=== PATIENT | male | born 1970 | race Caucasian/White ===

== ENCOUNTER → 2018-10-11 | Outpatient (CLI) | payer BC ==
--- NOTE | 2018-10-11 13:01 | XR ---
EXAMINATION TYPE: XR chest 2V DATE OF EXAM: 10/11/2018 COMPARISON: 10/30/2015 HISTORY: Chest pain TECHNIQUE: Frontal and lateral views of the chest are obtained. FINDINGS: There is no focal air space opacity. No evidence for pneumothorax. No pleural effusion. The cardiac silhouette size is within normal limits. The osseous structures are grossly intact. IMPRESSION: 1. No acute cardiopulmonary process.
== END | disposition home or self-care (01) ==
LOC: RADXRMAIN 12:34
PROVIDERS: ATTEND Family Medicine
DX: Z09 Encounter for follow-up examination after completed treatment for conditions other than malignant neoplasm (principal); Z87.891 Personal history of nicotine dependence
CPT/HCPCS: 71046

== ENCOUNTER → 2022-05-05 | Outpatient (CLI) | payer BC ==
--- NOTE | 2022-05-05 09:48 | CA ---
Transthoracic Echo Report Name: Raffy Perez Age: 51 Gender: M : 1970 Exam Date: 05/05/2022 08:34 Exam Location: [place] [facility] Ht (in): 72 Wt (lb): 185 Ordering Physician: Jose Elias Figueredo DO Attending/Referring Phys: Physical Fitness Teacher Lu Birmingham RDCS Procedure CPT: Indications: R07.9 CHEST PAIN R06.02 SOB Cardiac Hx: Technical Quality: Good Contrast 1: Total Dose (mL): Contrast 2: Total Dose (mL): MEASUREMENTS (Male / Female) Normal Values 2D ECHO LV Diastolic Diameter PLAX 4.7 cm 4.2 - 5.9 / 3.9 - 5.3 cm LV Systolic Diameter PLAX 3.2 cm IVS Diastolic Thickness 1.2 cm 0.6 - 1.0 / 0.6 - 0.9 cm LVPW Diastolic Thickness 1.4 cm 0.6 - 1.0 / 0.6 - 0.9 cm LV Relative Wall Thickness 0.6 RV Internal Dim ED PLAX 3.3 cm LA Systolic Diameter LX 3.5 cm 3.0 - 4.0 / 2.7 - 3.8 cm LA Volume 39.0 cm??? 18 - 58 / 22 - 52 cm??? M-MODE Aortic Root Diameter MM 3.7 cm LA Systolic Diameter MM 3.6 cm LA Ao Ratio MM 1.0 MV E Point Septal Separation 0.1 cm AV Cusp Separation MM 2.0 cm DOPPLER MV Area PHT 2.9 cm??? Mitral E Point Velocity 42.5 cm/s Mitral A Point Velocity 69.2 cm/s Mitral E to A Ratio 0.6 MV Deceleration Time 261.9 ms MV E' Velocity 4.9 cm/s Mitral E to MV E' Ratio 8.6 FINDINGS Left Ventricle Normal left ventricular size, wall thickness, left ventricular ejection fraction is estimated at 50-55%. Right Ventricle The right ventricle is normal in size and function. Right Atrium The right atrium is normal in size. Left Atrium The left atrium is normal in size. Mitral Valve Structurally normal mitral valve without significant stenosis or prolapse. There is mild mitral regurgitation. Aortic Valve Structurally normal aortic valve without significant sclerosis or stenosis. There is no aortic regurgitation. Tricuspid Valve Structurally normal tricuspid valve without significant stenosis. Pulmonary artery systolic pressure is normal. Pulmonic Valve Structurally normal pulmonic valve without significant stenosis. There is no pulmonic regurgitation. Pericardium Normal pericardium without effusion. Aorta Normal aortic root dimension. CONCLUSIONS Left ventricular ejection fraction 50-55% Mild mitral regurgitation No pericardial effusion Previewed by: Dr. Calvin Vargas DO (Electronically Signed) Final Date: 05 May 2022 09:47
== END | disposition home or self-care (01) ==
LOC: RADECHMAIN 08:13
PROVIDERS: ATTEND Family Medicine
DX: I34.0 Nonrheumatic mitral (valve) insufficiency (principal)
CPT/HCPCS: 93306

== ENCOUNTER → 2022-08-13 | Outpatient (CLI) | payer BC ==
--- NOTE | 2022-08-13 20:26 | MR ---
EXAMINATION TYPE: MR lumbar spine wo con DATE OF EXAM: 08/13/2022 11:52 AM COMPARISON: CT 11/26/2015. CLINICAL INDICATION:Male, 51 years old with history of M48.061 SPINAL STENOSIS. TECHNIQUE: Multi planar, multi sequence imaging was performed utilizing: T1-weighted, T2-weighted, a nd turbo inversion recovery imaging of the lumbar spine. IV Contrast: None. FINDINGS: Alignment: The lumbar vertebral bodies have preserved alignment. Mild wedging of the L1 vertebral eufemia dy without acute bony edema on inversion recovery sequences. Cord: The conus medullaris and the distal spinal cord appear unremarkable with regards to their signa l intensity and morphology. Bones/Discs: Heterogenous diffuse low T1/T2 signal throughout the visualized osseous structures. Mult ilevel degenerative disc disease is noted and most pronounced at the L3-L4. Intervertebral disc signa l is maintained. L1-L2: No evidence of significant spinal canal stenosis or neural foraminal stenosis. L2-L3: No evidence of significant spinal canal stenosis or neural foraminal stenosis. L3-L4: No evidence of significant spinal canal stenosis. Facet joint arthropathy without significant neural foraminal stenosis. L4-L5: No evidence of significant spinal canal stenosis. Facet joint arthropathy without significant neural foraminal stenosis. L5-S1: No evidence of significant spinal canal stenosis. Facet joint arthropathy mild bilateral neura l foraminal stenosis. IMPRESSION: 1. No definitive evidence of disc herniation or significant spinal canal stenosis. 2. Mild disc degeneration with associated osteoarthritic changes. 3. Diffuse red marrow conversion can be seen in the setting of tobacco abuse, anemia, or myeloprolif erative disorders.
== END | disposition home or self-care (01) ==
LOC: RADMRIMAIN 10:48
PROVIDERS: ATTEND Nurse Practitioner Family
DX: M48.061 Spinal stenosis, lumbar region without neurogenic claudication (principal); M51.36 Other intervertebral disc degeneration, lumbar region; M47.816 Spondylosis without myelopathy or radiculopathy, lumbar region; F17.200 Nicotine dependence, unspecified, uncomplicated
CPT/HCPCS: 72148

== ENCOUNTER → 2022-09-28 | Outpatient (CLI) | payer BC ==
[2022-09-28 08:55] VITALS: BP 133/95; PULSE 87; RESP 18; TEMP 98.4
--- NOTE | 2022-09-28 15:45 | P.PAINPG ---
PQRS Measure Charge Sheet Comment: HISTORY OF PRESENT ILLNESS: 51 yr old male as a referral from [facility] presents today w severe and chronic L>R LBP secondary to DDD, spondylosis and facet arthropathy without myelopathy for evaluation. Pt states pain level is at 9 /10 in intensity, constant, localized in the L lumbar spine, dull, achy in character w shooting pain towards the R ship and RLE. Pain is provoked by over stretching. Pain is alleviated by PT ended in Aug x 8 wks, massage therapy integrated w PT, chiropractic treatments weekly for 2+ yrs, heat, ice, meds (Tramadol, Flexeril), topicals, repositioning and rest. PMH: Hypothyroidism PSH: Hip Surgery SH: Daily tobacco use, No ETOH abuse, No illicit drug use. and lives w spouse. FH: Non contributory All: NKDA Meds: See list REVIEW OF ORGAN SYSTEMS: CONSTITUTIONAL: No fevers or chills. No recent weight loss. NEUROLOGICAL: + numbness and tingling along the distal extremities. No seizure disorders or headaches. MUSCULOSKELETAL: + pain PSYCHIATRIC: Denies current depression or suicidal thoughts. Physical Examinations : Constitutional : Cooperative , not in acute distress . Neurologic : Cranial nerve II to XII intact. No focal neurological deficits. Psychiatric : alert & oriented x 3. Matching mood & appropriate affect. Judgment & insight intact. Musculoskeletal : Cervical Spine Motor strength in the deltoid and biceps: Normal right side. Normal Left side Motor strength biceps and the wrist extensors: Normal right side . Normal left side Motor strength in the triceps muscle: Normal right side. Normal left side Deep tendon reflexes: Normal at the biceps. Normal at Brachioradialis. Normal at triceps Vertebral body tenderness to deep palpation over Cervical facet loading test: positive bilaterally Spurling test: positive bilaterally Neck distraction test: positive b ilaterally Kendall sign: positive bilaterally Lumbar spine Motor strength lower extremities ,thigh and legs 5/5 Right side , 5/5 Left side Deep tendon reflexes : Normal Knee Jerk. Normal Ankle Jerk Vertebral body tenderness over L5 Lumbar facet Loading Test: positive Right / positive Left Range of motion of the lumbar spine Flexion 30 degrees, extension 10 degrees Straight Leg Raise test: Left/ Right positive at degree Shey test: positive right / positive left. Severe tenderness over the Sacroiliac joint on the Right / Left sides Gaenslen test: positive bilaterally Seated flexion test: positive bilaterally. Sacral spine : Severe tenderness over the Sacroiliac joint: right side / left side Range of motion: Flexion of the lumbar spine <60 degrees Range of motion: Extension of the lumbar spine <20 degrees Gaenslen's Test positive Young's Test positive Shey test: positive right side / left side Thigh Thrust Test Sacral Thrust Test Imaging: MRI without contrast of the lumbar spine from 08/13/22 reviewed Assessment/ Plan : Lumbar DDD Recommendation of R TFESI L5-S1. May need a series of injections, up to 3 within a six-month timeframe, for optimal pain relief. Risks/benefits of procedure discussed and patient verbalized understanding. Admits to aspirin or anti- coagulant use or medical history of diabetes. Protocol for discontinuation/ continuation of medications sara procedure discussed. All questions answered. I have spent greater than 30 minutes on patient care today. Dr Cardenas was available by phone for the evaluation of this patient. The time was used to review the medical records including relevant urine studies and Prescription history (MAPs), review of the available imaging, evaluation and examination of the patient, coordination of care with the medical staff and if applicable referring physicians, as well as creation of the medical record PQRS Narrative: Smoking Status Current every day smoker Home Medications: Ambulatory Orders Levothyroxine Sodium [Synthroid] 1 tab PO DAILY 12/01/15 Controlled Substance Measures - Controlled Substance Measures Is patient prescribed a controlled substance at discharge?: No
== END ==
LOC: PNWHC3 08:06
PROVIDERS: ATTEND Specialist
DX: M51.36 Other intervertebral disc degeneration, lumbar region (principal); E03.9 Hypothyroidism, unspecified; Z79.890 Hormone replacement therapy; F17.200 Nicotine dependence, unspecified, uncomplicated
CPT/HCPCS: 99211

== ENCOUNTER → 2022-11-18 | Outpatient (CLI) | payer BC ==
[2022-11-18 08:20] VITALS: BP 150/101; PULSE 81; RESP 18
--- NOTE | 2022-11-18 15:09 | P.PAINPG ---
Objective - Vital Signs Vital signs: Intake & Output 11/17/22 11/18/22 11/18/22 18:59 06:59 18:59 Weight 83.461 kg PQRS Measure Charge Sheet Comment: A 52 yr old male with a history of severe and chronic LBP secondary to lumbar DDD and spondylosis with facet arthropathy without myelopathy presents today for evaluation s/p R TFESI L5-S1. Pt states he experienced 85% pain relief for > 2 wks until present. Pain level is provoked at 5/10 in intensity occasionally, constant, localized in the lumbar spine, stabbing in character w shooting towards the BLEs. Pain is provoked by standing, running and weight bearing activity. Pain is alleviated with PT integrated w massage x 6 wks in Aug 2022, chiropractic treatments 2-4 times montly for years currently, heat, medications, topicals, repositioning and rest. Interventional pain procedures completed include R TFESI L5-S1 Patient is currently on Tramadol, Flexeril, Advil Patient denies any side effects of the medication(s), denies excessive drowsiness or sleepiness, denies suicidal ideation and reports that the current pain medication is helping to control the pain and improve activities of daily living. Patient denies any motor or sensory deficits. Patient denies any fever or night sweats, denies any change in the bowel movements or urination. Physical Examination: -Constitutional: Cooperative. Not in acute distress . - Neurologic: Cranial nerve II to XII intact. No focal neurological deficits. - Psychatric: Alert & oriented x 3. Matching mood & appropriate affect. Judgment and insight intact. - Musculoskeletal: Cervical spine: Muscle bulk/ tone/ strength in the bilateral upper extremities normal Vertebral body tenderness to palpation over Spurling test positive Distraction test positive Facet loading test positive TTP Thoracic spine Muscle bulk / tone/ strength in the bilateral paraspinal muscles normal Vertebral body tender to palpation over Facet loading test positive TTP Lumbar spine: Motor bulk/ tone/ strength lower extremities , thigh and legs : 5/5 Deep tendon reflexes : Normal Knee Jerk. Normal Ankle Jerk . Vertebral body tenderness to palpation over Lumbar Facet Loading Test positive Straight Leg Raise: positive at 30 degrees right side/ left side Gaenslen's Test positive Sacral spine : Severe tenderness over the Sacroiliac joint: right side / left side Range of motion: Flexion of the lumbar spine <60 degrees Range of motion: Extension of the lumbar spine <20 degrees Gaenslen's Test positive right side / left side Shey test: positive right side / left side Thigh Thrust Test positive right side / left side Sacral Thrust Test positive right side / left side Assessment and plan: Chronic LBP secondary to lumbar DDD, spondylosis with facet arthropathy without myelopathy Exhibited sufficient and substantial pain relief s/p procedure. Will manage residual pain at home and may return to this clinic on an as needed basis. All questions answered. I have spent less than 30 minutes on patient care today. Dr Cardenas was available by phone for the evaluation of this patient. The time was used to review the medical records including relevant urine studies and Prescription history (MAPs), review of the available imaging, evaluation and examination of the patient, coordination of care with the medical staff and if applicable referring physicians, as well as creation of the medical record PQRS Narrative: Smoking Status Current every day smoker Hx Alcohol Use (MH) Yes: CASUAL Home Medications: Ambulatory Orders Levothyroxine Sodium [Synthroid] 88 mcg PO DAILY 12/01/15 Cyclobenzaprine [Flexeril] 10 mg PO TID 10/21/22 carvediloL [Coreg] 6.25 mg PO DAILY 10/21/22 traMADol HCL 50 mg PO Q6H 10/21/22 Controlled Substance Measures - Controlled Substance Measures Is patient prescribed a controlled substance at discharge?: No
== END ==
LOC: PNWHC3 07:48
PROVIDERS: ATTEND Specialist
DX: M51.36 Other intervertebral disc degeneration, lumbar region (principal); M47.816 Spondylosis without myelopathy or radiculopathy, lumbar region; G89.29 Other chronic pain; F17.200 Nicotine dependence, unspecified, uncomplicated; Z79.890 Hormone replacement therapy
CPT/HCPCS: 99211

== ENCOUNTER → 2024-04-07 | Outpatient (CLI) | payer BC ==
--- NOTE | 2024-04-07 13:02 | XR ---
EXAMINATION TYPE: XR chest 2V DATE OF EXAM: 04/07/2024 COMPARISON: 10/11/2018 HISTORY: Shortness of breath TECHNIQUE: Frontal and lateral views of the chest are obtained. FINDINGS: Scattered senescent parenchymal changes noted. Hyperinflation compatible with COPD. No evidence for infiltrate. No evidence for atelectasis. Heart size is stable. Mediastinal structures are stable and grossly unremarkable. No evidence for hilar prominence. Degenerative changes dorsal spine. IMPRESSION: 1. No evidence for acute pulmonary disease.
== END | disposition home or self-care (01) ==
LOC: RADXRMAIN 12:43
PROVIDERS: ATTEND Family Medicine
DX: R07.9 Chest pain, unspecified (principal); R06.02 Shortness of breath; Z72.0 Tobacco use
CPT/HCPCS: 71046

== ENCOUNTER 2024-04-30 22:39 | Observation (INO) | payer BC ==
--- NOTE | 2024-04-30 22:47 | ED ---
Chest Pain HPI - General Chief Complaint: Chest Pain Stated Complaint: Chest pain Time Seen by Provider: 04/30/24 22:45 Source: patient, RN notes reviewed, old records reviewed Mode of arrival: ambulatory Limitations: no limitations - History of Present Illness Initial Comments: This is a 53-year-old male to the ER for evaluation patient presents today for chest pain and a syncopal event. No recurrent syncope here in the ER but patient is complaining of severe chest pain although improved here in the emergency department. No significant medical history takes no medications her blood pressure has been elevated states patient had slurred speech MD Complaint: chest pain, other (Event prior to arrival) -: hour(s) Onset: during rest, during exertion Pain Location: left chest Pain Radiation: LUE Severity: severe Quality: aching, sharp Consistency: constant, now resolved Improves With: nothing Worsens With: nothing Anginal Symptoms: sense of impending doom Other Symptoms: syncope, palpitations Treatments Prior to Arrival: none - Related Data Home Medications Medication Instructions Recorded Confirmed Levothyroxine Sodium [Synthroid] 88 mcg PO DAILY 12/01/15 05/01/24 Multivitamins, Thera [Multivitamin 1 tab PO DAILY 05/01/24 05/01/24 (formulary)] amLODIPine [Norvasc] 5 mg PO DAILY 05/01/24 05/01/24 Allergies Allergy/AdvReac Type Severity Reaction Status Date / Time No Known Allergies Allergy Verified 05/01/24 09:01 Review of Systems ROS Statement: Those systems with pertinent positive or pertinent negative responses have been documented in the HPI. ROS Other: All systems not noted in ROS Statement are negative. EKG Findings - EKG Comments: EKG Findings:: EKG sinus 60 MA 194 QRS 116 QTc 455 - EKG Results: EKG: interpreted by WESLEY Past Medical History Past Medical History: Hypertension, Thyroid Disorder History of Any Multi-Drug Resistant Organisms: None Reported Past Surgical History: Cholecystectomy Additional Past Surgical History / Comment(s): hip surgery reconstruction rt Past Anesthesia/Blood Transfusion Reactions: No Reported Reaction, Family History of Problems w/ Anesthesia Additional Past Anesthesia/Blood Transfusion Reaction / Comment(s): mother has reactions to anesthesia but doesn't think she runs a high fever Past Psychological History: No Psychological Hx Reported Smoking Status: Current every day smoker Past Alcohol Use History: None Reported Past Drug Use History: None Reported General Exam Limitations: no limitations General appearance: alert, in no apparent distress, anxious Head exam: Present: atraumatic, normocephalic, normal inspection Eye exam: Present: normal appearance, PERRL, EOMI. Absent: scleral icterus, conjunctival injection, periorbital swelling ENT exam: Present: normal exam, mucous membranes moist Neck exam: Present: normal inspection. Absent: tenderness, meningismus, lymphadenopathy Respiratory exam: Present: normal lung sounds bilaterally. Absent: respiratory distress, wheezes, rales, rhonchi, stridor Cardiovascular Exam: Present: regular rate, normal rhythm, normal heart sounds. Absent: systolic murmur, diastolic murmur, rubs, gallop, clicks GI/Abdominal exam: Present: soft, normal bowel sounds. Absent: distended, tenderness, guarding, rebound, rigid Extremities exam: Present: normal inspection, full ROM, normal capillary refill. Absent: tenderness, pedal edema, joint swelling, calf tenderness Back exam: Present: normal inspection Neurological exam: Present: alert, oriented X3, CN II-XII intact Psychiatric exam: Present: normal affect, normal mood Skin exam: Present: warm, dry, intact, normal color. Absent: rash Course Vital Signs 04/30/24 05/01/24 05/01/24 22:40 00:00 01:05 Temperature 98.2 F Pulse Rate 75 70 62 Respiratory 18 16 16 Rate Blood Pressure 149/74 100/71 108/74 O2 Sat by Pulse 96 97 97 Oximetry 05/01/24 03:00 Temperature Pulse Rate 88 Respiratory 16 Rate Blood Pressure 101/78 O2 Sat by Pulse 95 Oximetry - Reevaluation(s) Reevaluation #1: 05/01/24 02:46 Medical records reviewed Reevaluation #2: 05/01/24 02:46 Patient symptoms improved no recurrent syncope chest pain improved Reevaluation #3: 05/01/24 02:46 Patient informed of results and questions answered Reevaluation #4: Was pt. sent in by a medical professional or institution (, PA, MANAGER PAID, urgent care, hospital, or correction...) When possible be specific @ -no Did you speak to anyone other than the patient for history (EMS, parent, family, police, friend...)? What history was obtained from this source @ -no Did you review nursing and triage notes (agree or disagree)? Why? @ -agree Are old charts reviewed (outside hosp., previous admission, EMS record, old EKG, old radiological studies, urgent care reports/EKG's, correction records)? Report findings @ -yes Differential Diagnosis (chest pain, altered mental status, abdominal pain women, abdominal pain men, vaginal bleeding, weakness, fever, dyspnea, syncope, headache, dizziness, GI bleed, back pain, seizure, CVA, palpatations, mental health, musculoskeletal)? @ -prior EKG interpreted by me (3pts min.). @ -yes X-rays interpreted by me (1pt min.). @ -no CT interpreted by me (1pt min.). @ -yes negative for acute disease U/S interpreted by me (1pt. min.). @ -no What testing was considered but not performed or refused? (CT, X-rays, U/S, labs)? Why? @ -none What meds were considered but not given or refused? Why? @ -none Did you discuss the management of the patient with other professionals (professionals i.e. , PA, MANAGER PAID, lab, RT, psych nurse, social insurance administrator, entry level project coordinator, teacher, audit officer, major case detective)? Give summary @ -no Was smoking cessation discussed for >3mins.? @ -no Was critical care preformed (if so, how long)? @ -[id number] Were there social determinants of health that impacted care today? How? (Homelessness, low income, unemployed, alcoholism, drug addiction, transportation, low edu. Level, literacy, decrease access to med. care, [facility], rehab)? @ -none Was there de-escalation of care discussed even if they declined (Discuss DNR or withdrawal of care, Hospice)? DNR status @ -no What co-morbidities impacted this encounter? (DM, HTN, Smoking, COPD, CAD, Cancer, CVA, ARF, Chemo, Hep., AIDS, mental health diagnosis, sleep apnea, morbid obesity)? @ -none Was patient admitted / discharged? Hospital course, mention meds given and route, prescriptions, significant lab abnormalities, going to OR and other pertinent info. @ - 53 male with syncopal event and chest pain severe chest pain CT scan negative CT brain is negative for traumatic injury patient needs to be admitted Admitted Undiagnosed new problem with uncertain prognosis? @ -no Drug Therapy requiring intensive monitoring for toxicity (Heparin, Nitro, Insulin, Cardizem)? @ -no Were any procedures done? @ -no Diagnosis/symptom? @ -Syncope Acute, or Chronic, or Acute on Chronic? @ -Acute Uncomplicated (without systemic symptoms) or Complicated (systemic symptoms)? @ -Complicated Side effects of treatment? @ -no Exacerbation, Progression, or Severe Exacerbation? @ -exacerbation Poses a threat to life or bodily function? How? (Chest pain, [place], [place], pneumonia, PE, COPD, DKA, ARF, appy, cholecystitis, CVA, Diverticulitis, Homicidal, Suicidal, threat to staff... and all critical care pts) @ -yes with syncope syncope Reevaluation #5: Differential Chest Pain: Stable Angina, Unstable Angina, STEMI, NSTEMI Aortic Dissection, Pneumothorax, Musculoskeletal, Esophageal Spasm GERD, Cholecystitis, Pancreatitis, Zoster, this is not meant to be an all-inclusive list. - Consultations Consultation #1: Spoke with [facility] who agrees to admit this patient Chest Pain MDM - MDM 53 male with syncopal event and chest pain severe chest pain CT scan negative CT brain is negative for traumatic injury patient needs to be admitted Critical Care Time Critical Care Time: Yes Total Critical Care Time: 31 Disposition Clinical Impression: Chest pain, Syncope Disposition: ADMITTED IP TO THIS [facility] Condition: Fair Is patient prescribed a controlled substance at d/c from ED?: No Time of Disposition: 02:40
[2024-04-30] MEDS: SODIUM CHLORIDE 0.9% 1,000 ML IV STA (23:33)
[2024-04-30 23:45] LABS: Basophils # (A) 0.1 k/uL (0-0.2); Basophils % (A) 1 %; Eosinophils # (A) 0.5 k/uL (0-0.7); Eosinophils % (A) 6 %; HCT 42.6 % (39.0-53.0); HGB 14.5 gm/dL (13.0-17.5); Lymphocytes # (A) 2.8 k/uL (1.0-4.8); Lymphocytes % (A) 35 %; MCH 33.4 pg (25.0-35.0); MCV 98.4 fL (80.0-100.0); Mean Platelet Volume 7.4; Monocytes # (A) 0.5 k/uL (0-1.0); Monocytes % (A) 6 %; Neutrophils # (A) 3.9 k/uL (1.3-7.7); Neutrophils % (A) 49 %; Platelet Count 193 k/uL (150-450); RBC 4.33 m/uL (4.30-5.90); RDW 12.9 % (11.5-15.5); WBC 7.9 k/uL (3.8-10.6)
[2024-05-01 00:04] LABS: ALT 16 U/L (4-49); AST 28 U/L (17-59); African American GFR (CKD) >90 (>60 ml/min/1.73 sqM); Albumin 4.1 g/dL (3.5-5.0); Alkaline Phosphatase 60 U/L (38-126); Anion Gap 13 mmol/L; Blood Urea Nitrogen 10 mg/dL (9-20); Calcium 8.8 mg/dL (8.4-10.2); Carbon Dioxide 18 mmol/L (22-30); Chloride 105 mmol/L (98-107); Glucose 95 mg/dL (74-99); Lipase 88 U/L (23-300); Non-African American GFR(CKD) 80 (>60 ml/min/1.73 sqM); Potassium 3.9 mmol/L (3.5-5.1); Sodium 136 mmol/L (137-145); Total Bilirubin 0.5 mg/dL (0.2-1.3); Total Protein 6.3 g/dL (6.3-8.2)
[2024-05-01 00:12] LABS: Partial Thromboplastin Time 24.3 sec (22.0-30.0); Prothrombin Time 10.7 sec (10.0-12.5)
[2024-05-01 01:34] LABS: Appearance,Urine Clear (Clear); Bilirubin,Urine Negative (Negative); Blood,Urine Negative (Negative); Color,Urine Colorless; Glucose,Urine (UA) Negative (Negative); Ketones,Urine Negative (Negative); Leukocyte Esterase,Urine Trace (Negative); Nitrite,Urine Negative (Negative); PH, Urine 6.5 (5.0-8.0); Protein,Urine Negative (Negative); RBC,Urine <1 /hpf (0-5); Specific Gravity,Urine 1.004 (1.001-1.035); Squamous Epithelial Cell,Urine <1 /hpf (0-4); Urobilinogen,Urine <2.0 mg/dL (<2.0); WBC,Urine <1 /hpf (0-5)
[2024-05-01] MEDS ORDERED: ONDANSETRON 4 MG/2 ML VIAL IVP PRN (02:42)
[2024-05-01] MEDS ORDERED: MORPHINE SULFATE 4 MG/ML SYRINGE IV PRN (02:42)
[2024-05-01] MEDS ORDERED: NALOXONE 0.4 MG/ML 1 ML VIAL IV PRN (02:42)
[2024-05-01] MEDS: SODIUM CHLORIDE 0.9% 1,000 ML IV SCH (05:41)
[2024-05-01 08:24] VITALS: RESP 17
[2024-05-01] MEDS: amLODIPine 5 MG TAB PO SCH (10:15)
[2024-05-01] MEDS: PANTOPRAZOLE 40 MG/10 ML VIAL IV SCH (10:15)
[2024-05-01] MEDS: NICOTINE 21MG/24HR PATCH TRANSDERM SCH (12:34)
--- NOTE | 2024-05-01 12:38 | P.CRDCN ---
History of Present Illness History of present illness: HISTORY OF PRESENT ILLNESS: This is a 53 year old male with a past medical history significant for hypothyroidism and hypertension. Patient has an appointment to establish with Dr. Vargas next month. We have been asked to see the patient in consultation for syncope. Patient examined at the bedside. Patient reports he was walking around his house yesterday and passed out. He reports having chest pain after this syncopal episode. He reports having an episode similiar to this in March after hauling items from his basement. He reports mild chest pain after that. Reports uncontrolled BP at home with SBP into the 200s. His blood pressure here has been well controlled, even on the lower end. Reports in March his Coreg was increased and he was started on Norvasc. He is a one pack per day smoker. He reports alcohol use approximately 2 times a week. Reports family hx of CAD in his dad and grandpa. DIAGNOSTICS: - EKG reveals sinus mechanism with no signs of acute ischemia - Laboratory data: WBC 7.9. Hemoglobin 14.5. Platelet count 193. Sodium 136. Potassium 3.9. BUN 10. Creatinine 1.06. Troponin negative x 3. - Current home cardiac medications include carvedilol 25 mg at night and amlodipine 5 mg daily REVIEW OF SYSTEMS: At the time of my exam: CONSTITUTIONAL: Denies fever or chills. HEENT: Denies blurred vision, vision changes, or eye pain. Denies hemoptysis CARDIOVASCULAR: Denies chest pain. Denies orthopnea. Denies PND. Denies palpitations RESPIRATORY: Denies shortness of breath. GASTROINTESTINAL: Denies abdominal pain. Denies nausea or vomiting. HEMATOLOGIC: Denies bleeding disorders. GENITOURINARY: Denies any blood in urine. SKIN: Denies pruitis. Denies rash. PHYSICAL EXAM: VITAL SIGNS: Reviewed. GENERAL: Well-developed in no acute distress. HEENT: Head is normocephalic. Pupils are equal, round. Sclerae anicteric. Mucous membranes of the mouth are moist. Neck supple. No JVD or thyromegaly LUNGS: Respirations even and unlabored. Lungs essentially clear to auscultation bilaterally. HEART: Regular rate and rhythm. S1 and S2 heard. ABDOMEN: Soft. Nondistended. Nontender. EXTREMITIES: Normal range of motion. No clubbing or cyanosis. Peripheral pulses intact. No lower extremity edema NEUROLOGIC: Awake and alert. Oriented x 3. ASSESSMENT: Syncope Chest pain, troponin negative x 3 Acute alcohol intoxication, serum alcohol 161 on admission Hypertension Hyperlipidemia Nicotine dependence Family history of CAD Frequent alcohol use, 2-3 times per week PLAN: An acute coronary event has been ruled out Hold carvedilol Resume amlodipine Obtain 2D echo to assess cardiac structure and function Patient to undergo stress echocardiogram today to assess for ischemia Patient instructed to keep a log of his blood pressures at home and also to bring his blood pressure cuff to his follow-up appointment to verify accuracy of his cuff Recommend outpatient event monitor Further recommendations pending patient course Nurse practitioner note has been reviewed by physician. Signing provider agrees with the documented findings, assessment, and plan of care documented by ORCHARD HAND as a scribe. Past Medical History Past Medical History: Hypertension, Thyroid Disorder History of Any Multi-Drug Resistant Organisms: None Reported Past Surgical History: Cholecystectomy Additional Past Surgical History / Comment(s): hip surgery reconstruction rt Past Anesthesia/Blood Transfusion Reactions: No Reported Reaction, Family History of Problems w/ Anesthesia Additional Past Anesthesia/Blood Transfusion Reaction / Comment(s): mother has reactions to anesthesia but doesn't think she runs a high fever Past Psychological History: No Psychological Hx Reported Smoking Status: Current every day smoker Past Alcohol Use History: None Reported Additional Past Alcohol Use History / Comment(s): 1pk/day/38 yrs Past Drug Use History: None Reported Medications and Allergies Home Medications Medication Instructions Recorded Confirmed Type Levothyroxine Sodium [Synthroid] 88 mcg PO DAILY 12/01/15 05/01/24 History Multivitamins, Thera [Multivitamin 1 tab PO DAILY 05/01/24 05/01/24 History (formulary)] amLODIPine [Norvasc] 5 mg PO DAILY 05/01/24 05/01/24 History carvediloL [Coreg] 25 mg PO HS 05/01/24 05/01/24 History Allergies Allergy/AdvReac Type Severity Reaction Status Date / Time No Known Allergies Allergy Verified 05/01/24 09:01 Physical Exam Vitals: Vital Signs Temp Pulse Pulse Pulse Resp BP BP 05/01/24 08:20 05/01/24 07:08 98.1 F 86 17 123/67 05/01/24 05:18 98.3 F 81 18 125/75 05/01/24 03:00 88 16 101/78 05/01/24 01:05 62 16 108/74 05/01/24 00:00 70 16 100/71 04/30/24 22:40 98.2 F 75 18 149/74 Pulse Ox 05/01/24 08:20 97 05/01/24 07:08 97 05/01/24 05:18 95 05/01/24 03:00 95 05/01/24 01:05 97 05/01/24 00:00 97 04/30/24 22:40 96 Intake and Output 04/30/24 05/01/24 05/01/24 22:59 06:59 14:59 Intake Total 0 Balance 0 Intake: Oral 0 Other: # Voids 1 Weight 81.647 kg 81.647 kg Results 04/30/24 23:14 04/30/24 23:14 Cardiac Enzymes 04/30/24 04/30/24 05/01/24 Range/Units 23:14 23:14 04:07 AST 28 (17-59) U/L Troponin I <0.012 <0.012 (0.000-0.034) ng/mL 05/01/24 Range/Units 06:01 AST (17-59) U/L Troponin I <0.012 (0.000-0.034) ng/mL Coagulation 04/30/24 Range/Units 23:14 PT 10.7 (10.0-12.5) sec APTT 24.3 (22.0-30.0) sec CBC 04/30/24 Range/Units 23:14 WBC 7.9 (3.8-10.6) k/uL RBC 4.33 (4.30-5.90) m/uL Hgb 14.5 (13.0-17.5) gm/dL Hct 42.6 (39.0-53.0) % Plt Count 193 (150-450) k/uL Comprehensive Metabolic Panel 04/30/24 Range/Units 23:14 Sodium 136 L (137-145) mmol/L Potassium 3.9 (3.5-5.1) mmol/L Chloride 105 (98-107) mmol/L Carbon Dioxide 18 L (22-30) mmol/L BUN 10 (9-20) mg/dL Creatinine 1.06 (0.66-1.25) mg/dL Glucose 95 (74-99) mg/dL Calcium 8.8 (8.4-10.2) mg/dL AST 28 (17-59) U/L ALT 16 (4-49) U/L Alkaline Phosphatase 60 (38-126) U/L Total Protein 6.3 (6.3-8.2) g/dL Albumin 4.1 (3.5-5.0) g/dL Current Medications Generic Name Dose Route Start Last Admin Trade Name Freq PRN Reason Stop Dose Admin Sodium Chloride 1,000 mls @ 130 mls/hr 05/01/24 02:45 05/01/24 05:41 Saline 0.9% IV Not Given .[id number] TOBY Morphine Sulfate 4 mg 05/01/24 02:42 Morphine Sulfate 4 Mg/Ml Syringe IV Q4HR PRN Severe Pain (Scale 7 to 10) Naloxone HCl 0.2 mg 05/01/24 02:42 Naloxone 0.4 Mg/Ml 1 Ml Vial IV Q2M PRN Opioid Reversal Ondansetron HCl 4 mg 05/01/24 02:42 Ondansetron 4 Mg/2 Ml Vial IVP Q8HR PRN Nausea And Vomiting Pantoprazole Sodium 40 mg 05/01/24 09:00 Pantoprazole 40 Mg/10 Ml Vial IV DAILY TOBY Intake and Output 04/30/24 05/01/24 05/01/24 22:59 06:59 14:59 Intake Total 0 Balance 0 Intake: Oral 0 Other: # Voids 1 Weight 81.647 kg 81.647 kg 04/30/24 23:14 04/30/24 23:14
--- NOTE | 2024-05-01 13:48 | CA ---
Stress Echo Report Raffy Perez Age: 53 Gender: M : 1970 Exam Date: 05/01/2024 11:07 Exam Location: [facility] Ht (in): 72 Wt (lb): 180 Ordering Physician: Tg Cross Referring Physician: [id number] Instructor: [place] RDCS Technologist Procedure CPT: Indication: cp, syncope ICD-9 Codes: Rhythm: Patient History: HTN, FAMILY HX OF HEART DISEASE, CURRENT SMOKER 1 PPD X 40 YEARS, NUMBNESS IN FACE/NECK Cardiac Medications: Medications in past 24 hours: Contrast: Stress Results Protocol: Bennett Total dose(mL): Exercise Duration (min:sec): 10:[address] Depression (mm): Angina Score: Tello Score: METS: 11.5 Resting HR: 86 Resting BP: 146 / 92 Peak HR: 149 Peak BP: 178 / 88 Max Predicted HR: 167 89 % Max Predicted HR Target HR: 142 Double Product: [id number] Stress Summary: BP Response: Reason for Termination: MAX EXERTION/TARGET HR Cardiac Symptoms: CHEST PRESSURE ECG Analysis Resting ECG: Stress ECG: Arrhythmia: Echo Analysis Resting Echo: Peak Echo Analysis: MEASUREMENTS (Male/Female) Normal Values CONCLUSIONS Patient underwent exercise stress echo with a Bennett protocol treadmill stress test. Patient exercised into Stage 3 for a total of 10 minutes reaching a total of 11.5 METS. Patient's maximum heart rate was 149 which represented 89% age-predicted maximum heart rate. Stress EKG portion: At baseline patient's EKG showed normal sinus rhythm, left axis deviation, no significant ST or T wave abnormalities. At peak exercise, EKG showed no significant change from baseline. Stress echo portion: 2-D echocardiogram was performed in the parasternal long, personal short, apical 2 and apical four-chamber views at rest, peak exercise and in recovery. At baseline, echocardiogram showed left ventricular ejection fraction 55% without wall motion abnormalities. With peak exercise, echocardiogram shows improvement in left ventricular ejection fraction, increase contractility, decrease in left ventricular end systolic dimension without wall motion abnormalities consistent with a normal response to exercise. Conclusions: 1. Normal EKG and echo response to exercise without evidence of inducible ischemia. 2. Good exercise capacity. Dr. Calvin Vargas DO (Electronically Signed) Final Date: 01 May 2024 13:47
--- NOTE | 2024-05-01 13:51 | CA ---
Transthoracic Echo Report Name: Raffy Perez Age: 53 Gender: M : 1970 Exam Date: 05/01/2024 11:12 Exam Location: [facility] Ht (in): 72 Wt (lb): 180 Ordering Physician: Tg Cross Attending/Referring Phys: [id number], [employer] Operator Nimco Hills RDCS Procedure CPT: Indications: LV function, CP, syncope Cardiac Hx: Technical Quality: Good Contrast 1: Total Dose (mL): Contrast 2: Total Dose (mL): MEASUREMENTS (Male / Female) Normal Values 2D ECHO LV Diastolic Diameter PLAX 5.5 cm 4.2 - 5.9 / 3.9 - 5.3 cm LV Systolic Diameter PLAX 3.6 cm IVS Diastolic Thickness 0.9 cm 0.6 - 1.0 / 0.6 - 0.9 cm LVPW Diastolic Thickness 1.0 cm 0.6 - 1.0 / 0.6 - 0.9 cm LV Relative Wall Thickness 0.3 LVOT Diameter 2.3 cm LV Diastolic Volume MOD BP 160.6 cm??? 67 - 155 / 56 - 104 cm??? LV Systolic Volume MOD BP 58.3 cm??? 22 - 58 / 19 - 49 cm??? LV Ejection Fraction MOD BP 63.7 % >= 55 % LV Cardiac Index MOD BP 3207.0 cm???/min???m??? LV Diastolic Volume MOD 4C 160.2 cm??? LV Systolic Volume MOD 4C 55.0 cm??? LV Ejection Fraction MOD 4C 65.7 % LV Cardiac Index MOD 4C 3300.2 cm???/min???m??? LV Diastolic Length 4C 9.8 cm LV Systolic Length 4C 8.1 cm LV Diastolic Volume MOD 2C 159.0 cm??? LV Systolic Volume MOD 2C 55.2 cm??? LV Ejection Fraction MOD 2C 65.3 % LV Cardiac Index MOD 2C 3255.3 cm???/min???m??? LV Diastolic Length 2C 9.7 cm LV Systolic Length 2C 7.1 cm LA Volume 60.7 cm??? 18 - 58 / 22 - 52 cm??? LA Volume Index 29.7 cm???/m??? 16 - 28 cm???/m??? Ascending Aorta Diameter 3.6 cm DOPPLER AV Peak Velocity 131.1 cm/s AV Peak Gradient 6.9 mmHg AV Mean Velocity 93.7 cm/s AV Mean Gradient 3.9 mmHg AV Velocity Time Integral 30.0 cm LVOT Peak Velocity 118.8 cm/s LVOT Peak Gradient 5.6 mmHg LVOT Velocity Time Integral 24.6 cm LVOT Stroke Volume 100.4 cm??? LVOT Stroke Volume Index 49.3 ml/m??? LVOT Cardiac Index 3147.8 cm???/min???m??? AV Area Cont Eq vti 3.3 cm??? AV Area Cont Eq pk 3.7 cm??? MV Area PHT 4.3 cm??? Mitral E Point Velocity 80.8 cm/s Mitral A Point Velocity 65.7 cm/s Mitral E to A Ratio 1.2 MV Deceleration Time 177.0 ms PV Peak Velocity 93.0 cm/s PV Peak Gradient 3.5 mmHg FINDINGS Left Ventricle Left ventricular ejection fraction is estimated at 60-65 %. Mildly increased left ventricular diastolic volume. Left ventricular wall thickness normal. No obvious regional wall motion abnormalities. Right Ventricle Normal right ventricular size and function. Unable to estimate the right ventricular systolic pressure. Right Atrium Normal right atrial size. Left Atrium Mildly increased left atrial volume. Mitral Valve Structurally normal mitral valve. No evidence for mitral valve prolapse. No mitral stenosis. Trace mitral regurgitation. Aortic Valve Trileaflet aortic valve. No aortic valve stenosis or regurgitation. Tricuspid Valve Structurally normal tricuspid valve. No tricuspid stenosis. Trace tricuspid regurgitation. Pulmonic Valve Structurally normal pulmonic valve. No pulmonic stenosis. Trace pulmonic regurgitation. Pericardium No pericardial effusion. Aorta Normal size aortic root and proximal ascending aorta. CONCLUSIONS Left ventricular ejection fraction 60-65% Trace mitral regurgitation Trace tricuspid regurgitation No pericardial effusion Previewed by: Dr. Calvin Vargas DO (Electronically Signed) Final Date: 01 May 2024 13:50
--- NOTE | 2024-05-01 13:57 | XR ---
EXAMINATION TYPE: XR hand limited RT DATE OF EXAM: 05/01/2024 COMPARISON: NONE HISTORY: 53-year-old male pain from falling last night TECHNIQUE: 2 views FINDINGS: Minimal early degenerative spurring at the first CMC joint. No acute fracture, subluxation, dislocation. Joint spaces throughout the remainder of the hand are maintained. IMPRESSION: No acute osseous abnormality seen.
[2024-05-01 16:05] VITALS: BP 112/68; PULSE 77; TEMP 98.6
--- NOTE | 2024-05-01 16:06 | P.HPIM ---
History of Present Illness H&P Date: 05/01/24 This is a pleasant 53-year-old male who presented to the emergency department with chest pain that was constant and radiating to the left arm after a syncopal episode. Patient reports he follows with Dr. Figueredo in the outpatient setting with a past medical history of hypertension, thyroid disorder. Patient has been on blood pressure medication although has been having lowered blood pressure readings and was scheduled to follow-up with Dr. Vargas outpatient this upcoming May for evaluation. Patient was reportedly with outside and going into the home and fell with concerns of possible syncopal event. Patient had been drinking a couple of beers although reports this is so cially and a few times a week although not to the point of becoming severely intoxicated. Patient carries a full-time job and supports his and children who live in the home. Patient had a few beers and reports to smoking cigarettes and fell and attempted to get up although was not feeling well and called the other family members to bring him to the hospital. Patient has had negative troponins and also having some right hand pain which was negative for fractures. Labs reviewed and white count was normal with a hemoglobin of 14.5, platelets 193, sodium 136, potassium 3.9, BUN 10 with a creatinine of 1.06, magnesium is 2.0, LFTs within normal limits and lipase is 88. Per chart troponins x 3 have been negative and urinalysis was negative. Serum alcohol was 161 on admission although patient was alert and oriented x 3. EKG showed sinus rhythm. Patient was admitted under observation for cardiology evaluation. Patient evaluated by cardiology this morning recommending a stress test and echo. REVIEW OF SYSTEMS: CONSTITUTIONAL: No fever, no malaise, no fatigue. HEENT: No recent visual problems or hearing problems. Denied any sore throat. CARDIOVASCULAR: Reports of chest pain prior to arrival although resolved, orthopnea, PND, no palpitations, reports of possible syncope event prior to his hospitalization. PULMONARY: No shortness of breath, no cough, no hemoptysis. GASTROINTESTINAL: No diarrhea, no nausea, no vomiting, no abdominal pain. NEUROLOGICAL: No headaches, no weakness, no numbness. HEMATOLOGICAL: Denies any bleeding or petechiae. GENITOURINARY: Denies any burning micturition, frequency, or urgency. MUSCULOSKELETAL/RHEUMATOLOGICAL: Denies any joint pain, swelling, or any muscle pain. Reports of right hand pain and swelling ENDOCRINE: Denies any polyuria or polydipsia. The rest of the 14-point review of systems is negative. PHYSICAL EXAMINATION: GENERAL: The patient is alert and oriented x3, not in any acute distress. Well developed, well nourished. HEENT: Pupils are round and equally reacting to light. EOMI. No scleral icterus. No conjunctival pallor. Normocephalic, atraumatic. No pharyngeal erythema. No thyromegaly. CARDIOVASCULAR: S1 and S2 present. No murmurs, rubs, or gallops. PULMONARY: Chest is clear to auscultation, no wheezing or crackles. ABDOMEN: Soft, nontender, nondistended, normoactive bowel sounds. No palpable organomegaly. MUSCULOSKELETAL: No joint swelling or deformity. EXTREMITIES: No cyanosis, clubbing, or pedal edema. NEUROLOGICAL: Gross neurological examination did not reveal any focal deficits. SKIN: No rashes. Assessment: Chest pain, ruled out ACS, stress test and 2D echo was negative, troponins x 3 negative Syncope, possible medication induced as carvedilol was increased recently in [place] and patient has been having lowered blood pressure readings Continued ongoing nicotine dependence History of hypertension hyperlipidemia right hand pain s/p fall on 05/01, negative for fracture on imaging frequent alcohol intake 2-3 times per week GI prophylaxis DVT prophylaxis Full code Plan: Continue current medications and telemetry monitoring right hand xray was negative for fractures, continue to elevate and ice and use motrin/tylenol for pain Stress test and echo done and negative for ischemia Continue with Norvasc and hold carvedilol for now and record blood pressure readings daily, follow up with Dr. Vargas outpatient, schedule for outpatient event monitor Cleared by cardiology and will be discharged this afternoon. The impression and plan of care has been dictated by Rody Galicia, Nurse Practitioner as directed. Dr. Jose A MD I have performed a history and examination and MDM of this patient, discussed the same with the dictator, and agree with the dictator's assessment and plan as written ,documented as a scribe. Based on total visit time, I have performed more than 50% of the visit. Past Medical History Past Medical History: Hypertension, Thyroid Disorder History of Any Multi-Drug Resistant Organisms: None Reported Past Surgical History: Cholecystectomy Additional Past Surgical History / Comment(s): hip surgery reconstruction rt Past Anesthesia/Blood Transfusion Reactions: No Reported Reaction, Family History of Problems w/ Anesthesia Additional Past Anesthesia/Blood Transfusion Reaction / Comment(s): mother has reactions to anesthesia but doesn't think she runs a high fever Past Psychological History: No Psychological Hx Reported Smoking Status: Current every day smoker Past Alcohol Use History: None Reported Additional Past Alcohol Use History / Comment(s): 1pk/day/38 yrs Past Drug Use History: None Reported Medications and Allergies Home Medications Medication Instructions Recorded Confirmed Type Levothyroxine Sodium [Synthroid] 88 mcg PO DAILY 12/01/15 05/01/24 History Multivitamins, Thera [Multivitamin 1 tab PO DAILY 05/01/24 05/01/24 History (formulary)] amLODIPine [Norvasc] 5 mg PO DAILY 05/01/24 05/01/24 History Allergies Allergy/AdvReac Type Severity Reaction Status Date / Time No Known Allergies Allergy Verified 05/01/24 09:01 Physical Exam Vitals: Vital Signs Temp Pulse Pulse Pulse Resp BP BP 05/01/24 08:20 05/01/24 07:08 98.1 F 86 17 123/67 05/01/24 05:18 98.3 F 81 18 125/75 05/01/24 03:00 88 16 101/78 05/01/24 01:05 62 16 108/74 05/01/24 00:00 70 16 100/71 04/30/24 22:40 98.2 F 75 18 149/74 Pulse Ox 05/01/24 08:20 97 05/01/24 07:08 97 05/01/24 05:18 95 05/01/24 03:00 95 05/01/24 01:05 97 05/01/24 00:00 97 04/30/24 22:40 96 Intake and Output 04/30/24 05/01/24 05/01/24 22:59 06:59 14:59 Intake Total 0 Balance 0 Intake: Oral 0 Other: # Voids 1 Weight 81.647 kg 81.647 kg Results CBC & Chem 7: 04/30/24 23:14 04/30/24 23:14 Labs: Abnormal Lab Results - Last 24 Hours (Table) 04/30/24 05/01/24 Range/Units 23:14 01:17 Sodium 136 L (137-145) mmol/L Carbon Dioxide 18 L (22-30) mmol/L Ur Leukocyte Esterase Trace H (Negative) Thrombosis Risk Factor Assmnt - Choose All That Apply Any of the Below Risk Factors Present?: No Each Factor Represents 1 point: Age 41-60 years Other Risk Factors: No Other congenital or acquired thrombophilia - If yes, enter type in comment: No Thrombosis Risk Factor Assessment Total Risk Factor Score: 1 Thrombosis Risk Factor Assessment Level: Very Low Risk
--- NOTE | 2024-05-01 16:08 | P.DS ---
Providers Date of admission: 05/01/24 02:42 Expected date of discharge: 05/01/24 Attending physician: Viraj Alonzo Consults: 05/01/24 02:42 Consult Physician Routine Consulting Provider: Faby Womack Consult Reason/Comments: syncope Do you want consulting provider notified?: Yes Primary care physician: Jose Elias Restrepo[facility]mond [facility] Course: Final diagnosis Chest pain, ruled out ACS, stress test and 2D echo was negative, troponins x 3 negative Syncope, possible medication induced as carvedilol was increased recently in March and patient has been having lowered blood pressure readings Continued ongoing nicotine dependence History of hypertension hyperlipidemia right hand pain s/p fall on 05/01, negative for fracture on imaging frequent alcohol intake 2-3 times per week GI prophylaxis DVT prophylaxis Full code Discharge disposition Patient is being discharged in a stable condition with guarded prognosis to home. Patient will follow-up with Dr. Figueredo in the outpatient setting upon discharge. Patient is to continue with holding carvedilol and outpatient follow up with cardiology Dr. Vargas as scheduled. Total time taken is greater than 35 minutes. Hospital course This is a pleasant 53-year-old male who presented to the emergency department with chest pain that was constant and radiating to the left arm after a syncopal episode. Patient reports he follows with Dr. Figueredo in the outpatient setting with a past medical history of hypertension, thyroid disorder. Patient has been on blood pressure medication although has been having lowered blood pressure readings and was scheduled to follow-up with Dr. Vargas outpatient this upcoming May for evaluation. Patient was reportedly with outside and going into the home and fell with concerns of possible syncopal event. Patient had been drinking a couple of beers although reports this is socially and a few times a week although not to the point of becoming severely intoxicated. Patient carries a full-time job and supports his and children who live in the home. Patient had a few beers and reports to smoking cigarettes and fell and attempted to get up although was not feeling well and called the other family members to bring him to the hospital. Patient has had negative troponins and also having some right hand pain which was negative for fractures. Labs reviewed and white count was normal with a hemoglobin of 14.5, platelets 193, sodium 136, potassium 3.9, BUN 10 with a creatinine of 1.06, magnesium is 2.0, LFTs within normal limits and lipase is 88. Per chart troponins x 3 have been negative and urinalysis was negative. Serum alcohol was 161 on admission although patient was alert and oriented x 3. EKG showed sinus rhythm. Patient was admitted under observation for cardiology evaluation. Patient evaluated by cardiology this morning recommending a stress test and echo. Stress test was negative and patient has been cleared for discharge home. Discussion of outpatient event monitor with cardiology. Please refer to cardiology notes for further HPI. PHYSICAL EXAMINATION: GENERAL: The patient is alert and oriented x3, not in any acute distress. Well developed, well nourished. HEENT: Pupils are round and equally reacting to light. EOMI. No scleral icterus. No conjunctival pallor. Normocephalic, atraumatic. No pharyngeal erythema. No thyromegaly. CARDIOVASCULAR: S1 and S2 present. No murmurs, rubs, or gallops. PULMONARY: Chest is clear to auscultation, no wheezing or crackles. ABDOMEN: Soft, nontender, nondistended, normoactive bowel sounds. No palpable organomegaly. MUSCULOSKELETAL: No joint swelling or deformity. EXTREMITIES: No cyanosis, clubbing, or pedal edema. NEUROLOGICAL: Gross neurological examination did not reveal any focal deficits. SKIN: No rashes. The impression and plan of care has been dictated by Rody Galicia, Nurse Practitioner as directed. Dr. Jose A MD I have performed a history and examination and MDM of this patient, discussed the same with the dictator, and agree with the dictator's assessment and plan as written ,documented as a scribe. Based on total visit time, I have performed more than 50% of the visit. Patient Condition at Discharge: Fair Plan - Discharge Summary Discharge Rx Participant: No New Discharge Prescriptions: Continue Levothyroxine Sodium [Synthroid] 88 mcg PO DAILY amLODIPine [Norvasc] 5 mg PO DAILY Multivitamins, Thera [Multivitamin (formulary)] 1 tab PO DAILY Discontinued carvediloL [Coreg] 25 mg PO HS Discharge Medication List Levothyroxine Sodium [Synthroid] 88 mcg PO DAILY 12/01/15 [History] Multivitamins, Thera [Multivitamin (formulary)] 1 tab PO DAILY 05/01/24 [History] amLODIPine [Norvasc] 5 mg PO DAILY 05/01/24 [History] Follow up Appointment(s)/Referral(s): Calvin Vargas DO [STAFF PHYSICIAN] - 1 Week ([facility] will call patient to schedule appointment.) Jose Elias Figueredo DO [Primary Care Provider] - 1-2 days Patient Instructions/Handouts: Syncope (DC), Stress Echocardiogram (DC) Activity/Diet/Wound Care/Special Instructions: Activity limited until follow-up Follow-up with primary care provider on discharge Continue holding carvedilol and continue with Norvasc on discharge Take blood pressure readings daily and keep a diary of all readings for primary as well as cardiology follow-up Follow-up with cardiology Dr. Vargas on discharge Continue to ice right hand and take Motrin or Tylenol. No fractures noted Continue heart healthy diet Discharge Disposition: HOME SELF-CARE
== END 2024-05-01 15:48 | disposition home or self-care (01) ==
LOC: EC 22:39 → 6NMEDSUR 05-01 02:42
PROVIDERS: ADMIT Hospitalist; ATTEND Hospitalist
DX: R07.9 Chest pain, unspecified (principal); R55 Syncope and collapse; F10.129 Alcohol abuse with intoxication, unspecified; E78.5 Hyperlipidemia, unspecified; I10 Essential (primary) hypertension; E03.9 Hypothyroidism, unspecified; M79.641 Pain in right hand; F17.210 Nicotine dependence, cigarettes, uncomplicated; Y90.6 Blood alcohol level of 120-199 mg/100 ml; Z91.81 History of falling; Z79.890 Hormone replacement therapy; Z79.899 Other long term (current) drug therapy; Z82.49 Family history of ischemic heart disease and other diseases of the circulatory system
CPT/HCPCS: 36415; 70450; 71045; 71275; 72125; 80053; 80320; 81001; 83690; 83735; 84484; 85025; 85610; 85730; 93005; 93306; 93351; 94760; 96374; 99291